=== PATIENT | female | born 2000 ===

== ENCOUNTER 2019-01-06 15:03 | Emergency (ER) | payer OTHER ==
--- NOTE | 2019-01-06 15:42 | Emergency Department Report ---
Blank Doc - Documentation Documentation: 18-year-old female that presents generlized abdominal pain with blood in stool. Stated is 12 week but denies any vaginal bleeding. Stated has care by OBGYN. This initial assessment/diagnostic orders/clinical plan/treatment(s) is/are subject to change based on patient's health status, clinical progression and re- assessment by fellow clinical providers in the ED. Further treatment and workup at subsequent clinical providers discretion. Patient/guardians urged not to elope from the ED as their condition may be serious if not clinically assessed and managed. Initial orders include: 1- Patient sent to [facility] for further evaluation and treatment 2- labs 3- UA
[2019-01-06 16:30] LABS: Basophils % (Auto) 0.3 % (0.0-1.8); Eosinophils % (Auto) 0.3 % (0.0-4.3); Hematocrit 35.5 % (30.3-42.9); Hemoglobin 12.3 gm/dl (10.1-14.3); Lymphocytes # (Auto) 1.5 K/mm3 (1.2-5.4); Lymphocytes % (Auto) 13.7 % (13.4-35.0); Mean Corpuscular HGB Conc 35 % (30-34); Mean Corpuscular Volume 92 fl (79-97); Monocytes # (Auto) 0.5 K/mm3 (0.0-0.8); Monocytes % (Auto) 4.6 % (0.0-7.3); Platelet Count 231 K/mm3 (140-440); Red Blood Count 3.84 M/mm3 (3.65-5.03); Red Cell Distribution Width 12.9 % (13.2-15.2)
[2019-01-06 16:46] LABS: Bilirubin,Urine NEG (Negative); Blood,Urine NEG (Negative); Color,Urine Yellow (Yellow); Mucus,Urine 1+ /HPF; Protein,Urine <15 mg/dL mg/dL (Negative); Urobilinogen,Urine < 2.0 mg/dL (<2.0)
[2019-01-06 16:55] LABS: Alanine Aminotransferase 15 units/L (7-56); Albumin 3.7 g/dL (3.9-5); BUN/Creatinine Ratio 15; Blood Urea Nitrogen 6 mg/dL (7-17); Calcium 8.9 mg/dL (8.4-10.2); Hemolysis Index 27
[2019-01-06] MEDS ORDERED: ACETAMINOPHEN 500 MG TAB PO ONE (18:34)
[2019-01-06] MEDS ORDERED: ONDANSETRON 4 MG ODT TAB PO ONE (18:34)
--- NOTE | 2019-01-06 19:45 | Emergency Department Report ---
<YOGI BREWSTER - Last Filed: 01/07/19 00:44> ED Female HPI - General Chief complaint: Abdominal Pain Stated complaint: 12 WKS /PAIN Time Seen by Provider: 01/06/19 15:39 Source: patient Mode of arrival: Ambulatory Limitations: No Limitations - History of Present Illness Initial comments: This is a 18-year-old female, who speakes fluent welsh , pt states she is 12 weeks and has beed comlaining of agd cramping, with dysuria and urinary freqeuncy for 3 days. pt has OBGYN but unbable to get apointment MD Complaint: vaginal bleeding, dysuria, pelvic pain Onset/Timin -: days(s) Radiation: suprapubic Severity: moderate Severity scale (0 -10): 4 Quality: cramping Consistency: intermittent Improves with: none, urination Worsens with: urination Are you Now?: Yes Last Menstrual Period: 11/04/18 EDC: 08/11/19 - Related Data Sexually active: Yes : 1 Para: 0 A: 0 Previous Rx's Medication Instructions Recorded Last Taken Type Acetaminophen [Acetaminophen TAB] 650 mg PO Q6HR PRN #30 tablet 01/07/19 Unknown Rx Ondansetron [Zofran Odt] 4 mg PO Q8HR #12 tab.rapdis 01/07/19 Unknown Rx cephALEXin [Keflex] 500 mg PO Q12HR 10 Days #20 cap 01/07/19 Unknown Rx Allergies Allergy/AdvReac Type Severity Reaction Status Date / Time No Known Allergies Allergy Unverified 01/06/19 15:04 ED Review of Systems Constitutional: denies: chills, fever Eyes: denies: eye pain, eye discharge, vision change ENT: denies: ear pain, throat pain Respiratory: denies: cough, shortness of breath, wheezing Cardiovascular: denies: chest pain, palpitations Endocrine: no symptoms reported Gastrointestinal: denies: abdominal pain, nausea, diarrhea Genitourinary: denies: urgency, dysuria, discharge Musculoskeletal: denies: back pain, joint swelling, arthralgia Skin: denies: rash, lesions Neurological: denies: headache, weakness, paresthesias Psychiatric: denies: anxiety, depression Hematological/Lymphatic: denies: easy bleeding, easy bruising ED Past Medical Hx - Past Medical History Previous Medical History?: No - Surgical History Past Surgical History?: No - Social History Smoking Status: Never Smoker - Medications Home Medications: Home Medications Medication Instructions Recorded Confirmed Last Taken Type Acetaminophen [Acetaminophen TAB] 650 mg PO Q6HR PRN #30 tablet 01/07/19 Unknown Rx Ondansetron [Zofran Odt] 4 mg PO Q8HR #12 tab.rapdis 01/07/19 Unknown Rx cephALEXin [Keflex] 500 mg PO Q12HR 10 Days #20 cap 01/07/19 Unknown Rx ED Physical Exam - General Limitations: No Limitations General appearance: alert, in no apparent distress - Head Head exam: Present: atraumatic, normocephalic - Eye Eye exam: Present: normal appearance - ENT ENT exam: Present: normal exam, mucous membranes moist - Neck Neck exam: Present: normal inspection - Respiratory Respiratory exam: Present: normal lung sounds bilaterally. Absent: respiratory distress - Cardiovascular Cardiovascular Exam: Present: regular rate, normal rhythm. Absent: systolic murmur, diastolic murmur, rubs, gallop - GI/Abdominal GI/Abdominal exam: Present: soft, normal bowel sounds. Absent: distended, tenderness, guarding, rebound, rigid, bruit, hernia - Rectal Rectal exam: Present: deferred - External exam: Present: normal external exam. Absent: swelling, lesions, lacerations, ecchymosis, bleeding Speculum exam: Present: vaginal discharge. Absent: erythema - Extremities Exam Extremities exam: Present: normal inspection, full ROM, normal capillary refill. Absent: tenderness, pedal edema, joint swelling, calf tenderness - Back Exam Back exam: Present: normal inspection, full ROM. Absent: tenderness, CVA tenderness (R), CVA tenderness (L), paraspinal tenderness, vertebral tenderness, rash noted - Neurological Exam Neurological exam: Present: alert, oriented X3, CN II-XII intact, normal gait, reflexes normal - Psychiatric Psychiatric exam: Present: normal affect, normal mood - Skin Skin exam: Present: warm, dry, intact, normal color. Absent: rash ED Medical Decision Making - Lab Data Result diagrams: 01/06/19 15:55 01/06/19 15:55 - Radiology Data Radiology results: report reviewed, image reviewed [facility] [address] [place] [address] Ultrasound Report Signed Patient: ROOSEVELT ALFONSO MR#: [id number] : 2000 Acct:[id number] Age/Sex: 18 / F ADM Date: 01/06/19 Loc: ED Attending Dr: Ordering Physician: YOGI BREWSTER NP Date of Service: 01/06/19 Procedure(s): US OB >= 14 weeks Fetus Accession Number(s): [id number] cc: YOGI BREWSTER NP ULTRASOUND OBSTETRIC Indication: abd pain 12 wks preg. Pelvic pain with . Findings: There is a single intrauterine . BPD = 3.4 cm = 16 weeks, 4 day(s). Head circumference = 12.5 cm = 16 weeks, 2 day(s). Abdominal circumference = 10.1 cm = 16 weeks, 1 day(s). Femur length = 2.0 cm = 16 weeks, 0 day(s). Overall estimated sonographic age = 16 weeks, 2 day(s). heart rate is 138 beats per minute. Estimated weight is 146 g grams position is cephalic. Cervix appears closed. movement is present. Placenta is anterior and grade 0 . Amniotic fluid volume measures about 3 cm greatest pocket Maternal adnexa appear normal. Impression: 1. Single living intrauterine with estimated sonographic age of 16 weeks, 2 day(s). 2. No sonographic abnormality identified. Signer Name: Yong Gómez MD Signed: 01/07/2019 12:00 AM Workstation Name: [id number] Transcribed By: Dictated By: Yong Gómez MD Electronically Authenticated By: Yong Gómez MD Signed Date/Time: 01/07/19 0000 DD/ 2358 - Medical Decision Making US: Single IUP, 16 weeks and 2 days , ua : normal plan: tylenol, zofran follow up with OBGYN in 2-3 days. pt verbalized agreement and understanding of same. p tdc' to aldair in stable condition at this time. ED Disposition Clinical Impression: Abdominal pain during intrauterine Disposition: DC-01 TO HOME OR SELFCARE Is pt being admited?: No Does the pt Need Aspirin: No Condition: Stable Instructions: Abdominal Pain (ED) Additional Instructions: You 6 week and 2 days, FHR 138 BPM, follow up with O BGYN in 2-3 days . Prescriptions: Acetaminophen [Acetaminophen TAB] 650 mg PO Q6HR PRN #30 tablet PRN Reason: Pain cephALEXin [Keflex] 500 mg PO Q12HR 10 Days #20 cap Ondansetron [Zofran Odt] 4 mg PO Q8HR #12 tab.rapdis Referrals: [facility] [Provider Group] - 3-5 Days Forms: Work/School Release Form(ED) Time of Disposition: 00:54 <NILAM AMAYA - Last Filed: 01/07/19 14:05> ED Review of Systems ROS: Stated complaint: 12 WKS /PAIN Other details as noted in HPI ED Course Vital Signs 01/06/19 01/07/19 19:47 00:51 Temperature 98.0 F 97.7 F Pulse Rate 80 62 Respiratory 16 14 Rate Blood Pressure 99/49 Blood Pressure 107/69 [Left] O2 Sat by Pulse 97 99 Oximetry ED Medical Decision Making - Lab Data Result diagrams: 01/06/19 15:55 01/06/19 15:55 Critical care attestation.: If time is entered above; I have spent that time in minutes in the direct care of this critically ill patient, excluding procedure time. ED Disposition Is pt being admited?: No Does the pt Need Aspirin: No
--- NOTE | 2019-01-07 00:04 | Ultrasound Report ---
ULTRASOUND OBSTETRIC Indication: abd pain 12 wks preg. Pelvic pain with . Findings: There is a single intrauterine . BPD = 3.4 cm = 16 weeks, 4 day(s). Head circumference = 12.5 cm = 16 weeks, 2 day(s). Abdominal circumference = 10.1 cm = 16 weeks, 1 day(s). Femur length = 2.0 cm = 16 weeks, 0 day(s). Overall estimated sonographic age = 16 weeks, 2 day(s). heart rate is 138 beats per minute. Estimated weight is 146 g grams position is cephalic. Cervix appears closed. movement is present. Placenta is anterior and grade 0 . Amniotic fluid volume measures about 3 cm greatest pocket Maternal adnexa appear normal. Impression: 1. Single living intrauterine with estimated sonographic age of 16 weeks, 2 day(s). 2. No sonographic abnormality identified. Signer Name: Yong Gómez MD Signed: 01/07/2019 12:00 AM Workstation Name: [id number]
[2019-01-07 00:52] VITALS: BP 107/69
== END 2019-01-07 01:00 | disposition home or self-care (01) ==
LOC: ED 15:03
DX: O26.891 Other specified pregnancy related conditions, first trimester (principal); R10.2 Pelvic and perineal pain; R30.0 Dysuria; R35.0 Frequency of micturition; Z3A.12 12 weeks gestation of pregnancy
CPT/HCPCS: 36415; 76805; 80053; 81001; 83690; 84702; 85025; 86900; 86901; 87210; Q0162

== ENCOUNTER 2019-03-26 10:51 | Outpatient (CLI) | payer OTHER ==
[2019-03-26 11:08] VITALS: BP 107/61
[2019-03-26 14:11] LABS: Bacteria,Urine 1+ /HPF (Negative); Bilirubin,Urine NEG (Negative); Blood,Urine NEG (Negative); Color,Urine Yellow (Yellow); Mucus,Urine FEW /HPF; Protein,Urine <15 mg/dL mg/dL (Negative); RBC,Urine < 1.0 /HPF (0.0-6.0); Urobilinogen,Urine < 2.0 mg/dL (<2.0)
== END 2019-03-26 14:28 | disposition home or self-care (01) ==
LOC: TRG 10:51
PROVIDERS: ATTEND Obstetrics & Gynecology
DX: O47.02 False labor before 37 completed weeks of gestation, second trimester (principal); Z3A.27 27 weeks gestation of pregnancy
CPT/HCPCS: 81001; 87086

== ENCOUNTER 2019-07-02 05:40 | Inpatient (IN) | payer OTHER ==
[2019-07-02] MEDS ORDERED: TERBUTALINE 1 MG/1 ML INJ IVP PRN (13:01)
[2019-07-02] MEDS ORDERED: LIDOCAINE (2%) 20 MG/1 ML VIAL 20 ML MDV INFILTRATI NR (13:01)
[2019-07-02] MEDS ORDERED: fentaNYL 100 MCG/2 ML INJ IV PRN (13:01)
[2019-07-02] MEDS ORDERED: BUTORPHANOL 2 MG/1 ML INJ IV PRN (13:01)
[2019-07-02] MEDS ORDERED: NalbUPHINE 10 MG/1 ML INJ IV PRN (13:01)
[2019-07-02] MEDS ORDERED: ePHEDrine SULFATE 50 MG/1 ML INJ IV PRN ×2 (13:01→19:11)
[2019-07-02] MEDS ORDERED: MINERAL OIL 30 ML ORAL LIQD PO PRN (13:01)
[2019-07-02] MEDS ORDERED: ONDANSETRON 4 MG/2 ML INJ IV PRN (13:01)
[2019-07-02] MEDS ORDERED: TERBUTALINE 1 MG/1 ML INJ SUB-Q PRN (13:01)
[2019-07-02] MEDS ORDERED: LACTATED RINGERS 1,000 ML ONE (13:03)
[2019-07-02] MEDS ORDERED: OXYTOCIN DRIP 30,000 MILLIUNITS/500 ML BAG IV ONE (13:03)
[2019-07-02] MEDS ORDERED: fentaNYL 100 MCG/2 ML INJ ONE (13:04)
[2019-07-02 13:35] LABS: Hemoglobin 12.7 gm/dl (10.1-14.3)
[2019-07-02 13:39] LABS: Hematocrit 38.3 % (30.3-42.9); Mean Corpuscular HGB Conc 33 % (30-34); Mean Corpuscular Volume 91 fl (79-97); Platelet Count 212 K/mm3 (140-440); Red Blood Count 4.24 M/mm3 (3.65-5.03); Red Cell Distribution Width 14.9 % (13.2-15.2)
[2019-07-02] MEDS ORDERED: OXYTOCIN DRIP 30 UNITS/500 ML BAG IV SCH ×2 (14:00)
[2019-07-02] MEDS ORDERED: LACTATED RINGERS 1,000 ML IV SCH (14:00)
--- NOTE | 2019-07-02 14:36 | History and Physical Report ---
History of Present Illness Date of examination: 07/02/19 Date of admission: 07/02/2019 Chief complaint: Labor Pains History of present illness: Transferred into care at 13 weeks; course complicated by Anemia, and a UTI. Past History Past Medical History: no pertinent history Past Surgical History: no surgical history Family/Genetic History: diabetes Social history: no significant social history, single - Obstetrical History Expected Date of Delivery: 06/25/19 Actual Gestation: 41 Week(s) 0 Day(s) : 1 Medications and Allergies Allergies Allergy/AdvReac Type Severity Reaction Status Date / Time No Known Allergies Allergy Unverified 01/06/19 15:04 Home Medications Medication Instructions Recorded Confirmed Last Taken Type Acetaminophen [Acetaminophen TAB] 650 mg PO Q6HR PRN #30 tablet 01/07/19 07/02/19 Unknown Rx Ondansetron [Zofran Odt] 4 mg PO Q8HR #12 tab.rapdis 01/07/19 07/02/19 Unknown Rx cephALEXin [Keflex] 500 mg PO Q12HR 10 Days #20 cap 01/07/19 07/02/19 Unknown Rx Active Meds: Active Medications Butorphanol Tartrate (Stadol) 1 mg IV Q2H PRN PRN Reason: Pain, Moderate(4-6) LABOR PAIN Butorphanol Tartrate (Stadol) 2 mg IV Q2H PRN PRN Reason: Pain , Severe (7-10) Ephedrine Sulfate (Ephedrine Sulfate) 10 mg IV Q2M PRN PRN Reason: Hypotension Fentanyl (Sublimaze) 100 mcg IV Q2H PRN PRN Reason: Pain,Severe (7-10) LABOR PAIN Oxytocin/Sodium Chloride (Pitocin/Ns 20 Unit/1000ml Drip) 20 units in 1,000 mls @ 125 mls/hr IV DIRECT NATALI Oxytocin/Sodium Chloride (Pitocin/Ns 30 Unit/500ml) 30 units in 500 mls @ 4 mls/hr IV TITR NATALI; Protocol Lactated Ringer's (Lactated Ringers) 1,000 mls @ 125 mls/hr IV DIRECT NATALI Lidocaine (Xylocaine 2%) 20 ml INFILTRATI ONCE NR Stop: 07/02/19 18:00 Mineral Oil (Mineral Oil) 30 ml PO QHS PRN PRN Reason: Constipation Nalbuphine HCl (Nalbuphine) 10 mg IV Q2H PRN PRN Reason: Pain, Moderate (4-6) Ondansetron HCl (Zofran) 4 mg IV Q8H PRN PRN Reason: Nausea And Vomiting Terbutaline Sulfate (Brethine) 0.25 mg SUB-Q ONCE PRN PRN Reason: Hyperstimulation/Hypertonicity Terbutaline Sulfate (Brethine) 0.25 mg IVP ONCE PRN PRN Reason: Hyperstimulation/Hypertonicity Review of Systems All systems: negative - Vital Signs Vital signs: Vital Signs Temp 98.4 F 07/02/19 06:00 Temp Pulse Resp BP Pulse Ox 98.2 F 84 131/75 99 07/02/19 13:00 07/02/19 14:26 07/02/19 12:36 07/02/19 14:26 - Physical Exam Breasts: Positive: normal Cardiovascular: Regular rate Lungs: Positive: Clear to auscultation, Normal air movement Abdomen: Positive: normal appearance, soft, normal bowel sounds Genitourinary (Female): Positive: normal external genitalia, normal perenium Vagina: Positive: normal moisture Uterus: Positive: enlarged Anus/Rectum: Positive: normal perianal skin - Obstetrical FHR: category 1 Uterine Contraction Monitor Mode: External Cervical Dilatation: 5 (moderate amount of thin green meconium stained fluids upon AROM @ 1430) Cervical Effacement Percentage: 80 station: -1 Uterine Contraction Pattern: Irregular Uterine Tone Measurement Phase: Resting Uterine Contraction Intensity: Moderate Results Result Diagrams: 07/02/19 13:19 Abnormal lab results 07/02/19 Range/Units 13:19 WBC 11.4 H (4.5-11.0) K/mm3 All other labs normal. Assessment and Plan A: IUP @ 41 Weeks Category I Tracing Active Labor GBS Negative P: Admit to L&D per Routine Orders Pitocin Augmentation AROM
[2019-07-02] MEDS: BUTORPHANOL 2 MG/1 ML INJ IV PRN ×2 (16:46→17:47)
[2019-07-02] MEDS ORDERED: fentaNYL-BUPIV 2 MCG/ML-0.125% 200 MCG/100 ML BAG EPIDURAL ONE (18:47)
[2019-07-02] MEDS ORDERED: DEXMEDETOMIDINE 200 MCG/2 ML VIAL IV ONE (18:47)
--- NOTE | 2019-07-02 19:10 | Anesthesia Consultation ---
Anesthesia Consult and Med Hx Date of service: 07/02/19 - Airway Anesthetic Teeth Evaluation: Good ROM Head & Neck: Adequate Mental/Hyoid Distance: Adequate Mallampati Class: Class II Intubation Access Assessment: Probably Good - Pulmonary Exam CTA: Yes - Cardiac Exam Cardiac Exam: RRR - Pre-Operative Health Status ASA Pre-Surgery Classification: ASA2 Proposed Anesthetic Plan: Epidural - Pulmonary Hx Asthma: No - Cardiovascular System Hx Hypertension: No - Central Nervous System Hx Seizures: No Hx Psychiatric Problems: No - Endocrine Hx Renal Disease: No Hx Hypothyroidism: No Hx Hyperthyroidism: No - Hematic Hx Anemia: No Hx Sickle Cell Disease: No - Other Systems Hx Alcohol Use: No
[2019-07-02] MEDS ORDERED: NALOXONE 2 MG/2 ML INJ IV PRN (19:11)
--- NOTE | 2019-07-02 19:11 | Progress Note ---
Labor Epidural - Labor Epidural Start Time: 18:41 Stop Time: 18:52 Performed by:: COLEMAN PEREZ Procedure: Patient is requesting epidural for labor pain. H&P, and labs reviewed. Procedure explained, questions answered, consent obtained. Patient in sitting position with blood pressure cuff and pulse ox on and working. Timeout performed immediately before start of procedure. Sterile betadine prep/drape. 3 mL 1% lidocaine skin wheal at L[3]-L[4]. 18-gauge Touhy epidural needle advanced to [id number] with saline at [7] cm. 27-gauge spinal needle advanced until clear, free-flowing CSF. Intrathecal dexmedetomidine [10] mcg administered and needle removed. Epidural catheter advanced to [12] cm, negative aspiration for blood and csf, negative test dose 3 ml 1.5% lidocaine with epinephrine. Sterile steri-strips and tegaderm applied, followed by tape reinforcement. Patient tolerated procedure well.
--- NOTE | 2019-07-02 19:35 | Progress Note ---
Assessment and Plan A: IUP @ 41 Weeks Category I Tracing Active Labor GBS Negative P: Continue Pitocin Augmentation IUPC placed Multiple Maternal Position Changes Subjective - Subjective Date of service: 07/02/19 Interval history: Transferred into care at 13 weeks; course complicated by Anemia, and a UTI. Patient reports: movement normal, other (Resting well under epidural anesthesia) Objective - Vital Signs Vital Signs: Vital Signs - 12hr 07/02/19 07/02/19 07/02/19 12:36 13:00 13:51 Temperature 98.2 F Pulse Rate 84 71 Blood Pressure 131/75 O2 Sat by Pulse 97 Oximetry 07/02/19 07/02/19 07/02/19 13:56 14:01 14:06 Temperature Pulse Rate 71 75 70 Blood Pressure O2 Sat by Pulse 99 99 98 Oximetry 07/02/19 07/02/19 07/02/19 14:11 14:16 14:21 Temperature Pulse Rate 71 73 79 Blood Pressure O2 Sat by Pulse 98 98 99 Oximetry 07/02/19 07/02/19 07/02/19 14:26 14:31 14:36 Temperature Pulse Rate 84 76 82 Blood Pressure O2 Sat by Pulse 99 100 99 Oximetry 07/02/19 07/02/19 07/02/19 14:41 14:46 14:51 Temperature Pulse Rate 79 79 82 Blood Pressure O2 Sat by Pulse 100 99 99 Oximetry 07/02/19 07/02/19 07/02/19 14:56 15:01 15:06 Temperature Pulse Rate 83 78 75 Blood Pressure O2 Sat by Pulse 99 99 99 Oximetry 07/02/19 07/02/19 07/02/19 15:11 15:16 15:21 Temperature Pulse Rate 75 78 86 Blood Pressure O2 Sat by Pulse 99 97 97 Oximetry 07/02/19 07/02/19 07/02/19 15:26 15:31 15:36 Temperature Pulse Rate 76 84 85 Blood Pressure O2 Sat by Pulse 98 99 99 Oximetry 07/02/19 07/02/19 07/02/19 15:41 15:46 15:51 Temperature Pulse Rate 95 H 82 82 Blood Pressure O2 Sat by Pulse 99 99 99 Oximetry 07/02/19 07/02/19 07/02/19 15:56 16:01 16:06 Temperature Pulse Rate 89 88 79 Blood Pressure O2 Sat by Pulse 99 98 98 Oximetry 07/02/19 07/02/19 07/02/19 16:11 16:24 16:29 Temperature Pulse Rate 77 73 85 Blood Pressure O2 Sat by Pulse 99 98 100 Oximetry 07/02/19 07/02/19 07/02/19 16:34 16:39 16:44 Temperature Pulse Rate 77 72 75 Blood Pressure O2 Sat by Pulse 100 98 97 Oximetry 07/02/19 07/02/19 07/02/19 16:49 16:54 16:59 Temperature Pulse Rate 79 76 73 Blood Pressure O2 Sat by Pulse 95 95 96 Oximetry 07/02/19 07/02/19 07/02/19 17:04 17:09 17:14 Temperature Pulse Rate 102 H 77 73 Blood Pressure O2 Sat by Pulse 98 98 99 Oximetry 07/02/19 07/02/19 07/02/19 17:19 17:24 17:33 Temperature Pulse Rate 76 80 31 L Blood Pressure O2 Sat by Pulse 99 100 93 Oximetry 07/02/19 07/02/19 07/02/19 17:38 17:43 17:48 Temperature Pulse Rate 93 H 89 75 Blood Pressure O2 Sat by Pulse 99 98 98 Oximetry 07/02/19 07/02/19 07/02/19 17:51 17:53 17:58 Temperature Pulse Rate 74 72 75 Blood Pressure 118/62 O2 Sat by Pulse 99 98 Oximetry 07/02/19 07/02/19 07/02/19 18:01 18:03 18:07 Temperature Pulse Rate 97 H 84 79 Blood Pressure 114/56 O2 Sat by Pulse 94 99 Oximetry 07/02/19 07/02/19 07/02/19 18:08 18:13 18:18 Temperature Pulse Rate 71 71 81 Blood Pressure O2 Sat by Pulse 98 98 99 Oximetry 07/02/19 07/02/19 07/02/19 18:19 18:20 18:23 Temperature Pulse Rate 79 74 73 Blood Pressure 116/61 O2 Sat by Pulse 91 98 Oximetry 07/02/19 07/02/19 07/02/19 18:26 18:28 18:33 Temperature Pulse Rate 78 86 72 Blood Pressure O2 Sat by Pulse 87 81 L 98 Oximetry 07/02/19 07/02/19 07/02/19 18:36 18:38 18:40 Temperature Pulse Rate 73 74 85 Blood Pressure 120/68 O2 Sat by Pulse 99 92 Oximetry 07/02/19 07/02/19 07/02/19 18:43 18:47 18:49 Temperature Pulse Rate 83 77 86 Blood Pressure 120/72 123/72 O2 Sat by Pulse 100 Oximetry 07/02/19 07/02/19 07/02/19 18:50 18:53 18:55 Temperature Pulse Rate 73 83 87 Blood Pressure 120/60 116/56 O2 Sat by Pulse 78 L 98 Oximetry 07/02/19 07/02/19 07/02/19 18:56 18:57 19:00 Temperature Pulse Rate 71 82 93 H Blood Pressure 118/70 O2 Sat by Pulse 78 L 100 Oximetry 07/02/19 07/02/19 07/02/19 19:01 19:03 19:05 Temperature Pulse Rate 85 86 95 H Blood Pressure 129/62 144/70 142/72 O2 Sat by Pulse 91 98 Oximetry 07/02/19 07/02/19 07/02/19 19:07 19:09 19:10 Temperature Pulse Rate 102 H 100 H 98 H Blood Pressure 122/80 122/81 O2 Sat by Pulse 98 Oximetry 07/02/19 07/02/19 07/02/19 19:11 19:13 19:15 Temperature Pulse Rate 92 H 81 78 Blood Pressure 123/72 115/57 108/60 O2 Sat by Pulse 98 Oximetry 07/02/19 07/02/19 07/02/19 19:17 19:19 19:20 Temperature Pulse Rate 75 82 80 Blood Pressure 107/58 106/56 O2 Sat by Pulse 98 Oximetry 07/02/19 07/02/19 07/02/19 19:21 19:23 19:25 Temperature Pulse Rate 79 82 81 Blood Pressure 89/71 95/70 97/69 O2 Sat by Pulse 98 Oximetry 07/02/19 07/02/19 19:27 19:28 Temperature Pulse Rate 80 81 Blood Pressure 84/56 81/46 O2 Sat by Pulse Oximetry - Exam Breasts: normal Cardiovascular: Regular rate Lungs: Normal air movement Abdomen: Present: normal appearance, soft Uterus: Present: normal, firm, fundal height above umbilicus FHR: category 1 Uterine Contraction Monitor Mode: Internal Cervical Dilatation: 6 Cervical Effacement Percentage: 70 station: -1 Uterine Contraction Pattern: Irregular Uterine Tone Measurement Phase: Resting Uterine Contraction Intensity: Moderate Extremities: normal - Labs Labs: Abnormal Labs 07/02/19 13:19 WBC 11.4 H Laboratory Results - last 24 hr 07/02/19 07/02/19 13:19 13:19 WBC 11.4 H RBC 4.24 Hgb 12.7 Hct 38.3 MCV 91 MCH 30 MCHC 33 RDW 14.9 Plt Count 212 Blood Type O POSITIVE Antibody Screen Negative
[2019-07-02] MEDS ORDERED: fentaNYL-BUPIV 2 MCG/ML-0.125% 200 MCG/100 ML BAG EPIDURAL SCH (20:00)
[2019-07-03] MEDS: OXYTOCIN 20 UNIT/1000ML DRIP 20 UNITS/1,000 ML BAG IV SCH ×2 (05:08→08:53)
[2019-07-03 05:18] LABS: Cord Art Bld Carbxyhemoglobin 1.3; Cord Art Bld Methemoglobin 1.1 mmHg; Cord Arterial Blood HCO3 21.1; Cord Arterial Oxyhemoglobin 30.9; Cord Venous Blood HCO3 21.1; Cord Venous Oxyhemoglobin 30.9
[2019-07-03 05:19] LABS: Cord Venous Blood PO2 < 21
[2019-07-03] MEDS ORDERED: LANOLIN/ZINC/DIMETHICONE (LANSINOH) 7 GM TP PRN (05:44)
[2019-07-03] MEDS ORDERED: diphenhydrAMINE 25 MG CAP PO PRN (05:44)
[2019-07-03] MEDS ORDERED: WITCH HAZEL/ GLYCERIN PAD TP PRN (05:44)
[2019-07-03] MEDS ORDERED: miSOPROStol 200 MCG TAB PR ONE (05:49)
--- NOTE | 2019-07-03 05:57 | Procedure Note ---
OB Delivery Note - Delivery Date of Delivery: 07/03/19 (0438) Surgeon: JULISA BASILIO Estimated blood loss: other (350) - Vaginal Delivery presentation: vertex Delivery position: OA Intrapartum events: meconium (thick), prolonged active phase Delivery induction: oxytocin Delivery augmentation: rupture of membranes, pitocin Delivery monitor: external FHT, internal uterine Route of delivery: Delivery placenta: spontaneous Delivery cord: 3 umbilical vessels Episiotomy: none Delivery laceration: 2nd degree Delivery repair: vicryl Anesthesia: epidural Delivery comments: of a live 8'7 male over a 2nd degree perineal laceration under epidural anesthesia with Apgars of 1 and 8 at 0438 on 07/03/2019. Cord double clamped and cut by CARRI Basilio, Infant not stimulated and placed on warmer for NICU/RESP team. Spontaneous delivery of placenta complete and intact with Mccrary side presenting at 0448. Fundus is firm and midline at the U. Lochia is scant. Cord blood gasses collected x 2. Cord blood collected. Perineal laceration repaired with 2-[address]-1. - Infant A at 1 minute: 1 at 5 minutes: 8 Gender: Male (8'7)
[2019-07-03] MEDS: IBUPROFEN 600 MG TAB PO SCH ×3 (06:32→21:55)
[2019-07-03] MEDS ORDERED: METHYLERGONOVINE MALEATE 0.2 MG/ML VIAL IM SCH (09:00)
[2019-07-03] MEDS ORDERED: PRENATAL VIT27-FE FUMARATE-FOLIC ACID VIT TAB PO SCH (10:00)
--- NOTE | 2019-07-03 15:42 | Post Anesthesia Evaluation ---
- Post Anesthesia Evaluation Patient Participated: Yes Airway Patent: Yes Stable Respiratory Function: Yes Nausea/Vomiting: No Temp > 96.8F: Yes Pain Manageable: Yes Adequeate Hydration: Yes Anesthesia Complications: No Block Receding Appropriately: Yes
[2019-07-03 19:06] LABS: Hematocrit 30.4 % (30.3-42.9); Hemoglobin 10.3 gm/dl (10.1-14.3)
[2019-07-03] MEDS: FERROUS SULFATE 325 MG TAB PO SCH (21:55)
[2019-07-04] MEDS: HYDROcodone/ACETAMINOPHEN 5-325 MG TAB PO PRN ×2 (01:12→14:57)
[2019-07-04] MEDS: IBUPROFEN 600 MG TAB PO SCH ×2 (05:22→12:09)
[2019-07-04] MEDS ORDERED: SIMETHICONE 80 MG CHEW TAB PO PRN (10:26)
--- NOTE | 2019-07-04 10:32 | Progress Note ---
Assessment and Plan - Patient Problems (1) Status post normal vaginal delivery Current Visit: Yes Status: Acute Plan to address problem: D/C home today F/U at office in 6 wks for routine PP visit or prn Nothing in vagina for 6 wks (2) Anemia Current Visit: Yes Status: Acute Qualifiers: Anemia type: other cause Other causes of anemia: acute posthemorrhagic Qualified Code(s): D62 - Acute posthemorrhagic anemia Plan to address problem: Asymptomatic Increase iron rich foods into diet Continue oral iron supplementation as directed Subjective - Subjective Date of service: 07/04/19 Principal diagnosis: S/P ; PPD#1; anemia Interval history: See admission H & P; OB delivery summary and PP progress notes Patient reports: appetite normal, voiding normally, pain well controlled, ambulating normally, other (Desires to go home today), no flatus (encouraged to ambulate in room and in hallways, increase water intake), no bowel movement [place]: doing well Objective - Vital Signs Latest vital signs: Vital Signs Temp Pulse Resp BP BP Pulse Ox 07/04/19 08:19 98.5 F 93 H 18 122/85 99 07/04/19 01:18 97.4 F L 80 18 106/68 98 07/03/19 17:58 98.3 F 105 H 18 113/70 98 07/03/19 11:07 98.2 F 77 20 118/62 97 07/03/19 10:28 86 117/66 Intake and Output 07/03/19 07/04/19 07/04/19 23:59 07:59 15:59 Intake Total 480 480 Balance 480 480 Intake: Intake, Free Water 480 480 Other: # Voids Void 2 3 - Exam Breasts: Present: normal Cardiovascular: Present: Regular rate Lungs: Present: Normal air movement Abdomen: Present: soft Uterus: Present: firm, fundal height below umbilicus (U-2) Extremities: Present: normal Deep Tendon Reflex Grade: Normal +2 Incision: Present: other (2nd degree laceration, healing as expected)
[2019-07-04] MEDS: FERROUS SULFATE 325 MG TAB PO SCH (10:33)
--- NOTE | 2019-07-04 10:38 | Discharge Summary ---
Providers - Providers Date of Admission: 07/02/19 05:41 Date of discharge: 07/04/19 (1200) Attending physician: FELICIA LIVE MD Primary care physician: FELICIA LIVE MD Hospitalization Reason for admission: active labor, IUP at term Delivery: Episiotomy: none Laceration: 2nd degree (healing as expected) Other procedures: none complications: none Discharge diagnosis: IUP at term delivered, other (anemia) baby: male Hospital course: See admission H & P; OB delivery summary and PP progress notes Condition at discharge: Stable Disposition: DC-01 TO HOME OR SELFCARE - Discharge Diagnoses (1) Status post normal vaginal delivery Status: Acute (2) Anemia Status: Acute Qualifiers: Anemia type: other cause Other causes of anemia: acute posthemorrhagic Qualified Code(s): D62 - Acute posthemorrhagic anemia Plan - Discharge Medications Prescriptions: Ferrous Sulfate [Feosol 325 MG tab] 325 mg PO BID 30 Days #60 tablet - Provider Discharge Summary Activity: routine, no sex for 6 weeks, no heavy lifting 4 weeks, no strenuous exercise Diet: other (Iron rich diet) Instructions: routine Additional instructions: [] Smoking cessation referral if applicable(refer to patient education folder for contact #) [] Refer to [facility]'s [facility] Booklet Call your doctor immediately for: * Fever > 100.5 * Heavy vaginal bleeding ( >1 pad per hour) * Severe persistent headache * Shortness of breath * Reddened, hot, painful area to leg or breast * Drainage or odor from incision. * Keep laceration site clean and dry at all times and follow doctor's instructions regarding bathing/showering - Follow up plan Follow up: FELICIA LIVE MD [Primary Care Provider] - 6 Weeks
[2019-07-04 15:02] VITALS: BP 115/77
== END 2019-07-04 17:15 | disposition home or self-care (01) | DRG 775 ==
LOC: TRG 05:40 → LD 05:41 → APU 05:56 → LD 12:14 → OB 07-03 11:17
PROVIDERS: ADMIT Obstetrics & Gynecology; ATTEND Obstetrics & Gynecology
PROC: 10H07YZ Insertion of Other Device into Products of Conception, Via Natural or Artificial Opening (ICD-10-PCS; 2019-07-02)
PROC: 10907ZC Drainage of Amniotic Fluid, Therapeutic from Products of Conception, Via Natural or Artificial Opening (ICD-10-PCS; 2019-07-02)
PROC: 10E0XZZ Delivery of Products of Conception, External Approach (ICD-10-PCS; principal; 2019-07-03)
PROC: 0KQM0ZZ Repair Perineum Muscle, Open Approach (ICD-10-PCS; 2019-07-03)
PROC: 3E033VJ Introduction of Other Hormone into Peripheral Vein, Percutaneous Approach (ICD-10-PCS; 2019-07-03)
PROC: 3E0R3BZ Introduction of Anesthetic Agent into Spinal Canal, Percutaneous Approach (ICD-10-PCS; 2019-07-03)
PROC: 00HU33Z Insertion of Infusion Device into Spinal Canal, Percutaneous Approach (ICD-10-PCS; 2019-07-03)
DX: O77.0 Labor and delivery complicated by meconium in amniotic fluid (principal); O70.1 Second degree perineal laceration during delivery; O99.02 Anemia complicating childbirth; D62 Acute posthemorrhagic anemia; Z3A.41 41 weeks gestation of pregnancy; Z37.0 Single live birth; Z83.3 Family history of diabetes mellitus
CPT/HCPCS: 36415; 59025; 82803; 85014; 85018; 85027; 86850; 86900; 86901; 88307; G0378; J0595; J2210; J2405; J2590; J3010; J3490; J7120